=== PATIENT | female | born 2000 | race Asian ===

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

== ENCOUNTER 2019-05-07 18:54 | Inpatient (IN) | payer OTHER ==
--- NOTE | 2019-05-07 19:17 | ED ---
Psychiatric Complaint - HPI Summary HPI Summary: Pt is a 18 y/o F presenting to the ED brought in on a 9.41 by the [employer] [employer]. Per triage note, pt was talking to her boyfriend on the phone and expressed thoughts of wanting to jump off a bridge. Pt denies any symptoms, including pain or fever. She denies recent thoughts of suicide or recent self- harm. - History Of Current Complaint Chief Complaint: EDMentalHealth Time Seen by Provider: 05/07/19 19:05 Accompanied By: SHARRI Hx Obtained From: Patient Onset/Duration: Gradual Onset, Lasting Hours, Still Present Timing: Hours Severity Initially: Moderate Severity Currently: Mild Character: Depressed Aggravating Factor(s): Nothing Alleviating Factor(s): Nothing Associated Signs And Symptoms: Positive: Negative Has Suicidal: Reports: Thoughts, With A Plan - Allergies/Home Medications Allergies/Adverse Reactions: Allergies Allergy/AdvReac Type Severity Reaction Status Date / Time No Known Allergies Allergy Verified 04/09/18 02:24 PMH/Surg Hx/FS Hx/Imm Hx Previously Healthy: Yes Sensory History: Denies: Hx Legally Blind, Hx Deafness Opthamlomology History: Denies: Hx Legally Blind Psychiatric History: Reports: Hx Depression Denies: Hx Eating Disorder, Hx of Violent Episodes Against Others Infectious Disease History: No Infectious Disease History: Denies: Traveled Outside the [place] in Last 30 Days - Family History Known Family History: Positive: Other - Patient will not answer question - Social History Alcohol Use: Rare Hx Substance Use: No Substance Use Type: Reports: None Substance Use Comment - Amount & Last Used: pt denies Hx Tobacco Use: No Smoking Status (MU): Never Smoked Tobacco Review of Systems Negative: Fever Negative: Myalgia Positive: Depressed All Other Systems Reviewed And Are Negative: Yes Physical Exam - Summary Physical Exam Summary: Appearance: Well-appearing, Well-nourished, lying in bed comfortable Skin: Warm, dry, no obvious rash Eyes: sclera anicteric, no conjunctival pallor ENT: mucous membranes moist Neck: deferred Respiratory: No signs of respiratory distress Cardiovascular: Appears well perfused, pulses are nml Abdomen: deferred Musculoskeletal: Moving all 4 extremities without obvious discomfort Neurological: Awake and alert, mentation is normal, speech is fluent and appropriate Psychiatric: affect is normal, does not appear anxious or depressed Triage Information Reviewed: Yes Vital Signs On Initial Exam: Initial Vitals Temp Pulse Resp BP Pulse Ox 99.3 F 85 16 136/89 100 05/07/19 18:56 05/07/19 18:56 05/07/19 18:56 05/07/19 18:56 05/07/19 18:56 Vital Signs Reviewed: Yes Procedures - Sedation Patient Received Moderate/Deep Sedation with Procedure: No Diagnostics - Vital Signs Vital Signs Temp Pulse Resp BP Pulse Ox 05/07/19 18:56 99.3 F 85 16 136/89 100 - Laboratory Result Diagrams: 05/07/19 19:37 05/07/19 19:37 Lab Statement: Any lab studies that have been ordered have been reviewed, and results considered in the medical decision making process. Course/Dx - Course Course Of Treatment: Pt is a 18 y/o F presenting to the ED brought in on a 9.41 by the [place] [employer]. Pt denies any symptoms, including pain or fever. She denies recent thoughts of suicide or recent self-harm. Physical exam is nml. As per Dr. Avila, pt's dx is adjustment disorder and they will try to transfer her to another psych facility. - Differential Dx/Clinical Impression Provider Diagnosis: Adjustment disorder Discharge ED - Sign-Out/Discharge Documenting (check all that apply): Patient Departure - Discharge Plan Condition: Good Disposition: PSYCHIATRIC FACILITY-OTHER Referrals: [facility] [Outside] - Billing Disposition and Condition Condition: GOOD Disposition: Psychiatric Facility Other - Attestation Statements Document Initiated by Scribe: Yes Documenting Scribe: Gaby Ramos Provider For Whom Edwina is Documenting (Include Credential): Francisco Javier Schwarz MD. Scribe Attestation: Gaby Adam, scribed for Francisco Javier Schwarz MD. on 05/08/19 at 0315. Scribe Documentation Reviewed: Yes Provider Attestation: The documentation as recorded by the paxtonibGaby reza accurately reflects the service I personally performed and the decisions made by me, Francisco Javier Schwarz MD. Status of Scribe Document: Viewed
[2019-05-07 19:34] LABS: Urine Appearance Clear; Urine Bilirubin Negative (Negative); Urine Blood Negative (Negative); Urine Color Yellow; Urine Glucose Negative (Negative); Urine Ketones Negative (Negative); Urine Nitrite Negative (Negative); Urine Protein Negative (Negative); Urine Specific Gravity 1.011 (1.010-1.030); Urine Urobilinogen Negative (Negative)
[2019-05-07 19:42] LABS: Urine Bacteria Absent (Absent); Urine Red Blood Cell Absent (Absent); Urine Squamous Epithelial Cell Present (Absent); Urine White Blood Cell Trace(0-5/hpf) (Absent)
[2019-05-07 19:45] LABS: ABS Basophils 0.1 10^3/ul (0-0.2); ABS Eosinophils 0.1 10^3/ul (0-0.6); ABS Lymphocytes 1.4 10^3/ul (1.0-4.8); ABS Monocytes 0.3 10^3/ul (0-0.8); ABS Neutrophils 5.2 10^3/ul (1.5-7.7); Hematocrit 37 % (35-47); Hemoglobin 12.6 g/dL (12.0-16.0); Lymphocyte % 19.8 %; Mean Corpuscular HGB Conc 34 g/dL (31-36); Mean Corpuscular Hemoglobin 31 pg (27-31); Mean Corpuscular Volume 89 fL (80-97); Mean Platelet Volume 8.5 fL (7.4-10.4); Platelet Count 183 10^3/uL (150-450); Red Blood Count 4.12 10^6 /uL (3.70-4.87); Red Cell Distribution Width 13 % (10-15); White Blood Count 7.1 10^3/uL (3.5-10.8)
[2019-05-07 20:00] LABS: Urine Benzodiazepine Screen None Detected (None Detect); Urine Opiates Screen None Detected (None Detect)
[2019-05-07 20:02] LABS: ALT 20 U/L (7-52); AST 18 U/L (13-39); Albumin 4.7 g/dL (3.2-5.2); Albumin/Globulin Ratio 1.6 (1-3); Alkaline Phosphatase 39 U/L (34-104); Anion Gap 9 mmol/L (2-11); BUN/Creatinine Ratio 19.7 (8-20); Blood Urea Nitrogen 12 mg/dL (6-24); CO2 Carbon Dioxide 21 mmol/L (22-32); Calcium 10.1 mg/dL (8.6-10.3); Chloride 108 mmol/L (101-111); EGFR African American 152.9 (>60); EGFR Non-African American 126.4 (>60); Globulin 2.9 g/dL (2-4); Glucose 91 mg/dL (70-100); Potassium 3.5 mmol/L (3.5-5.0); Sodium 138 mmol/L (135-145); Total Protein 7.6 g/dL (6.4-8.9)
[2019-05-07 20:08] LABS: HCG Pregnancy < 0.60 mIU/mL
[2019-05-07 20:11] LABS: Acetaminophen < 15 mcg/mL; Alcohol < 10 mg/dL (<10); Salicylate < 2.50 mg/dL (<30)
[2019-05-07 20:24] LABS: TSH (Thyroid Stimulating Horm) 2.35 mcIU/mL (0.34-5.60)
--- NOTE | 2019-05-08 07:18 | ED ---
Progress - Progress Note Progress Note: The patient is a sign-out from Dr. Francisco Javier Schwarz MD, to Dr. Jw Patterson MD, at change of shift at 0700 on 05/08/19, pending transfer to [facility] for mental health treatment. 1020 Dr. Nunez, psychiatry, has evaluated the patient and has determined that the patient can be admitted to the [facility] psychiatry unit as there will be a bed available for the patient today, diagnosis of unspecified depression Course/Dx - Course Course Of Treatment: The patient is a sign-out from Dr. Francisco Javier Schwarz MD, to Dr. Jw Patterson MD, at change of shift at 0700 on 05/08/19, pending transfer to [facility] for mental health treatment. Dr. Nunez, psychiatry, has evaluated the patient and has determined that the patient can be admitted to the [facility] psychiatry unit as there will be a bed available for the patient today. Patient agrees with this plan. - Diagnoses Provider Diagnoses: Major depressive disorder, single episode, unspecified - Provider Notifications Discussed Care Of Patient With: Paulie Nunez - psychiatry Time Discussed With Above Provider: 10:20 Instructed by Provider To: Other - Dr. Nunez states that there will be a bed available for the patient, so the patient will not need to be transferred but will still be admitted to [facility], diagnosis of unspecified depression Discharge ED - Sign-Out/Discharge Documenting (check all that apply): Patient Departure - Patient accepted for admission by Dr. Nunez., Receiving Sign-Out Receiving patient FROM: Francisco Javier Schwarz - Patient is a sign-out from Dr. Francisco Javier Schwarz MD, at change of shift at 0700 on 05/08/19, pending mental health transfer. - Discharge Plan Condition: Stable Disposition: PSYCHIATRIC FACILITY-[facility] - Billing Disposition and Condition Condition: STABLE Disposition: Psychiatric Facility [facility] - Attestation Statements Document Initiated by Scribe: Yes Documenting Scribe: Cristina Cook Provider For Whom Edwina is Documenting (Include Credential): Dr. Jw Patterson MD Scribe Attestation: Cristina Adam scribed for Dr. Jw Patterson MD on 05/08/19 at 1900. Scribe Documentation Reviewed: Yes Provider Attestation: The documentation as recorded by the Cristina alves accurately reflects the service I personally performed and the decisions made by me, Dr. Jw Patterson MD Status of Scribe Document: Viewed Procedures - Sedation Patient Received Moderate/Deep Sedation with Procedure: No
[2019-05-08] MEDS ORDERED: Acetaminophen TAB* 325 MG PO PRN (11:00)
[2019-05-08] MEDS ORDERED: Al Hydrox/Mg Hydrox/Simet LIQ* 30 ML UDC PO PRN (11:00)
[2019-05-08] MEDS ORDERED: hydrOXYzine HCL TAB* 50 MG PO PRN (11:02)
[2019-05-08] MEDS ORDERED: YASMIN PO SCH (20:00)
[2019-05-09 08:21] LABS: HDL Cholesterol 61.2 mg/dL
[2019-05-09 10:36] VITALS: BP 114/54
--- NOTE | 2019-05-09 11:43 | PN ---
BSU: Group Therapy Note - Service Type Service Type: [id number] Group Psychotherapy - Cognitive Behavioral Group Therapy ( CBT):Patient was attentive and participatory in CBT programming this morning, and remained in good behavioral control. Patient expressed positive insights regarding relevant treatment interventions and goals.
--- NOTE | 2019-05-09 13:38 | HP ---
HISTORY & PHYSICAL/DISCHARGE SUMMARY DATE OF ADMISSION: 05/08/2019. SUPERVISING PSYCHIATRIST: Dr. Paulie Nunez * (dictated by FIDEL Connelly ). PRIMARY CARE PHYSICIAN: [facility]. JUSTIFICATION FOR ADMISSION: The patient presented to the emergency department via police after she expressed suicidal ideation and was near a bridge and had thoughts of jumping off of the bridge. The patient merits hospitalization for immediate safety and stabilization. CHIEF COMPLAINT: "I think I'm doing fine." HISTORY OF PRESENT ILLNESS: Jaimee is a 18-year-old female, first generation of parents who immigrated from [place]. 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 The patient reports thoughts of suicide recently and approximately a month ago and a year ago. She states that she is taking 23 credits this semester and having a hard time managing all of the course. She also reports that she is dating a young man who goes to college in [place] and that this long distance relationship is "complicated." According to the patient, she was calling her boyfriend and he was angry that she kept calling him after telling her that he was busy that day. She states that to her he simply did have time to take a phone call. This escalated to them arguing on the phone and with her being near a bridge, she had thoughts of jumping off of the bridge. While on the phone, the boyfriend notified a friend of [place] who called police and came to where she was. In conversation, the patient is dysphoric with flat affect and states that episodes like Wednesday and previous thoughts of suicide are "just part of life." She denies depressed mood. She denies incapacitating anxiety. She reports that she goes to sleep easily, although her sleep schedule is erratic due to her academic schedule. She denies change in appetite. She denies difficulty concentrating. She denies hopelessness or helplessness. The patient states that she was having more academic stress approximately a month ago and reached out to [facility], but there were no appointments available for two to three weeks. She states that she thought she would try to get through this semester and is looking forward to the break in between semesters and returning home to [place]. She denies previous suicide attempts. She reports that she superficially cut her wrist a month ago or so and also one year ago when she presented to the emergency department. She denies a history of eating disorder or OCD. She denies periods of maryann or hypomania. She denies auditory or visual hallucinations. There are no perceptual disturbances noted. PAST PSYCHIATRIC HISTORY: The patient went to an appointment at [facility] last year. She states that she felt it was too formal, did not like it, and did not continue. She does state that she would be willing to pursue counseling after today. The patient was seen in the ED in March 2018 with a similar presentation and was discharged from the emergency department. She denies a history of psychiatric medications. She denies trauma or abuse history. PAST MEDICAL HISTORY: Healthy. IMPORT COORDINATOR HISTORY: LMP . CURRENT MEDICATIONS: Oral contraceptive, one tab daily. ALLERGIES: No known allergies. FAMILY PSYCHIATRIC HISTORY: Patient denies knowledge of mental health or suicide history in the family. SUBSTANCE USE HISTORY: The patient denies substance use. She denies a history of legal or involvement. SOCIAL HISTORY: The patient is the only child of [place] immigrants. She was raised in [place], [place]. As stated above, she is a sophomore at [employer]. She is majoring in Biological Sciences with a minor in Business and a minor in Information Science. She is taking 23 credits. She is in service [employer] and also has two laboratory classes. Her parents are . Her father took a job in [employer] when she started college and the family continues to have a house in [place] and a home in [facility]. REVIEW OF SYSTEMS: Constitutional: Negative. No fever, chills, fatigue. ENT : Negative. Cardiovascular: Negative. Denies chest pain or palpitations. Respiratory: Negative. Denies shortness of breath or cough. Genitourinary: Negative. Musculoskeletal: Negative. Neurological: Negative. PHYSICAL EXAMINATION GENERAL: The patient is well-appearing and well-nourished and in no apparent distress. VITAL SIGNS: Height 5'3", weight 145 pounds. Temperature 99.4, pulse 75, respiratory rate 16, O2 saturation 100 percent, blood pressure 114/54. HEENT: Head and face: Normal head and face inspection. Eyes: Positive EOMI. PERRLA. Conjunctivae clear. NECK: Supple. Full ROM. Trachea midline. RESPIRATORY: Lung sounds clear to auscultation. Breath sounds present. CARDIOVASCULAR: Heart RRR. Pulses are symmetrical in both upper and lower extremities. MUSCULOSKELETAL: Normal strength. ROM intact. NEUROLOGIC: Normal sensory motor intact. Alert and oriented times three with normal gait. Cerebellar function intact. SKIN: Warm, dry. Color reflects adequate perfusion. LABORATORY DATA: CBC within normal limits. Chemistry within normal limits. TSH normal at 2.35. HCG negative. Hemoglobin A1c and lipid panel within normal limits. Urinalysis: Generally unremarkable. Toxicology negative for salicylates, acetaminophen, or alcohol. Urine drug screen was negative. MENTAL STATUS EXAM: The patient is a 18-year-old, female who appears stated age. She is adequately groomed and casually dressed in her own clothing. 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 She has shoulder length black hair with the ends bright pink. She is alert and oriented times three. Eye contact is good. Speech is soft, articulate and spontaneous. Concentration good. Memory 3/3. Mood is dysphoric with restricted affect. No abnormal psychomotor activity noted. Thought process is circumstantial. Thought content is negative for suicidal ideation or passive wish at the time of interview. She denies auditory or visual hallucinations. There are no perceptual disturbances noted. Insight and judgment are fair in that she was willing to be hospitalized voluntarily for safety. She has at least an average intellect and her fund of knowledge is adequate. DIAGNOSES: Unspecified depressive disorder, rule out major depressive disorder , rule out adjustment disorder with disturbance of mood and conduct. ASSESSMENT: Jaimee is a 18-year-old, female, first generation of immigrant parents from [place] and a [employer] student in her sophomore year who presented to the emergency department after [employer] were notified due to suicidal ideation and a near attempt. She was seen in the emergency department and deemed appropriate for admission to the B[facility]. PLAN: Patient is admitted to the Adult Behavioral Services Unit on voluntary status. Code status is full. She is on safety checks every 15 minutes. She is already participating in supportive milieu, individual sessions with staff, and psychoeducational groups. She has declined offer of antidepressant medication at this time. Her mother just arrived to the unit and we will collaborate with her and [facility]. Estimated length of stay is two to three days. Discharge planning will include the patient's mother and outpatient providers, along with referral to [facility]. CONDITION AT TIME OF DISCHARGE: Improved. Patient denies SI or passive wish. She requests to be discharged as soon as possible to return to academic schedule. Her mother is present from [place] and noted to be supportive with positive interactions toward Jaimee. Patient and mother agreeable to discharge plan. Patient is discharged to HOME. ANTOINETTE PAN, MEKHI [id number]/CPS #: [id number] BRANDAN
== END 2019-05-09 13:00 | disposition home or self-care (01) | DRG 881 ==
LOC: ED 18:54 → BSU 05-08 13:50
PROVIDERS: ADMIT Psychiatry & Neurology Psychiatry; ATTEND Psychiatry & Neurology Psychiatry
DX: F32.9 Major depressive disorder, single episode, unspecified (principal); R45.851 Suicidal ideations; F43.25 Adjustment disorder with mixed disturbance of emotions and conduct; Z79.3 Long term (current) use of hormonal contraceptives
CPT/HCPCS: 36415; 80053; 80061; 80307; 80320; 80329; 81003; 81015; 83036; 84443; 84702; 85025; 87086; 90853; 99238; 99284; G0480

== ENCOUNTER 2019-07-28 13:14 | Emergency (ER) | payer OTHER ==
--- NOTE | 2019-07-28 14:04 | ED ---
Head Injury - HPI Summary HPI Summary: This pt is a 18 Y/O F presenting to [facility] with a CC of falling down 5-6 stairs. She states that she has pain that is rated a 3/10 in severity. She states that she has multiple abrasions and ecchymosis over her body. She states that most of her pain is localized to where she has a large bruise with an abrasion on her R forehead. She denies any neck pain, SOB, CP, headaches, LOC, dizziness, blurred vision, and back pain. She has no aggravating or alleviating factors. She has no pertinent PMHx. Her LKMP was 2 weeks ago. - History Of Current Complaint Chief Complaint: EDHeadInjury Stated Complaint: FALL 10 STAIRS Time Seen by Provider: 07/28/19 13:46 Hx Obtained From: Patient Hx Last Menstrual Period: 2 weeks ago Mechanism Of Injury: Blunt Trauma, Fall From Height Of: - states fell down 5-6 stairs Onset/Duration: Started Hours Ago Onset of Pain: Immediate Severity Currently: Mild Severity Initially: Mild Pain Intensity: 3 Pain Scale Used: 0-10 Numeric Location of Head Injury: Frontal Aggravating Factor(s): Other: - nothing Alleviating Factor(s): Other: - nothing Associated Signs And Symptoms: Negative - neck pain, SOB, CP, headaches, LOC, dizziness, blurred vision, and back pain., Swelling, Bruising - Allergies/Home Medications Allergies/Adverse Reactions: Allergies Allergy/AdvReac Type Severity Reaction Status Date / Time No Known Allergies Allergy Verified 07/28/19 13:21 PMH/Surg Hx/FS Hx/Imm Hx Previously Healthy: Yes Endocrine/Hematology History: Denies: Hx Diabetes Cardiovascular History: Denies: Hx Congestive Heart Failure Sensory History: Reports: Hx Contacts or Glasses - Pt states she does not have contacts with her. Denies: Hx Legally Blind, Hx Deafness, Hx Hearing Aid Opthamlomology History: Reports: Hx Contacts or Glasses - Pt states she does not have contacts with her. Denies: Hx Legally Blind Psychiatric History: Reports: Hx Depression, Other Psychiatric Issues/Disorders - Hx SIB on L wrist, superficial cutting Denies: Hx Eating Disorder, Hx Post Traumatic Stress Disorder, Hx Schizophrenia, Hx Bipolar Disorder, Hx of Violent Episodes Against Others Comment Only: Hx Suicide Attempt - Pt states she thought about it in high school - Cancer History Hx Chemotherapy: No Hx Radiation Therapy: No - Surgical History Surgical History: None - Immunization History Immunizations Up to Date: Yes Infectious Disease History: No Infectious Disease History: Denies: Traveled Outside the [place] in Last 30 Days - Family History Known Family History: Negative: Hypertension, Diabetes - Social History Occupation: Student - [employer] Lives: Dormitory/Roommates Alcohol Use: None Hx Substance Use: No Substance Use Type: Reports: None Substance Use Comment - Amount & Last Used: pt denies Hx Tobacco Use: No Smoking Status (MU): Never Smoked Tobacco Review of Systems Constitutional: Negative - dizziness Negative: Blurred Vision ENT: Negative - Neck pain Negative: Chest Pain Negative: Shortness Of Breath Musculoskeletal: Negative - back pain Skin: Other - ecchymosis to R forehead Positive: Bruising Neurological/Mental Status: Negative - LOC Negative: Headache All Other Systems Reviewed And Are Negative: Yes Physical Exam - Summary Physical Exam Summary: VITAL SIGNS: Reviewed. GENERAL: Patient is a well-developed and nourished Female who is lying comfortable in the stretcher. Patient is not in any acute respiratory distress. HEAD AND FACE: Swelling on the R side of the forehead. No skull depressions. No sinus tenderness. EYES: PERRLA, EOMI x 2, No injected conjunctiva, no nystagmus. EARS: Hearing grossly intact. Ear canals and tympanic membranes are within normal limits. MOUTH: Oropharynx within normal limits. NECK: Supple, trachea is midline, no adenopathy, no JVD, no carotid bruit, no c- spine tenderness, neck with full ROM. CHEST: Symmetric, no tenderness at palpation. LUNGS: Clear to auscultation bilaterally. No wheezing or crackles. CVS: Regular rate and rhythm, S1 and S2 present, no murmurs or gallops appreciated. ABDOMEN: Soft, non-tender. No signs of distention. No rebound, no guarding, and no masses palpated. Bowel sounds are normal. EXTREMITIES: FROM in all major joints, no edema, no cyanosis or clubbing. NEURO: Alert and oriented x 3. No acute neurological deficits. Speech is normal and follows commands. SKIN: Dry and warm. Triage Information Reviewed: Yes Vital Signs On Initial Exam: Initial Vitals Temp Pulse Resp BP Pulse Ox 98.8 F 83 15 134/72 98 07/28/19 13:15 07/28/19 13:15 07/28/19 13:15 07/28/19 13:15 07/28/19 13:15 Vital Signs Reviewed: Yes Procedures - Sedation Patient Received Moderate/Deep Sedation with Procedure: No Diagnostics - Vital Signs Vital Signs Temp Pulse Resp BP Pulse Ox 07/28/19 13:15 98.8 F 83 15 134/72 98 - Laboratory Lab Statement: Any lab studies that have been ordered have been reviewed, and results considered in the medical decision making process. Re-Evaluation - Re-Evaluation First Eval Re-Evaluation Time: 14:08 Change: Unchanged Comment: Pt denied a CT scan and uis agreeable with having a friend watch her for the next 6 hours. She states that she has no real complaint and is agreeable with discharge. Head Injury Course/Dx Assessment/Plan: This pt is a 18 Y/O F presenting to [facility] with a CC of falling down 5-6 stairs. She states that she has pain that is rated a 3/10 in severity. She states that she has multiple abrasions and ecchymosis over her body. She states that most of her pain is localized to where she has a large bruise with an abrasion on her R forehead. She denies any neck pain, SOB, CP, headaches, LOC , dizziness, blurred vision, and back pain. She has no aggravating or alleviating factors. She has no pertinent PMHx. Her LKMP was 2 weeks ago. Patient is alert and oriented 3. The patient is neurological intact. The patient does have any neck pain or headache. The patient has pain along the swelling in the right side of the forehead. The patient declined the CT of the head. Patient reports that she will have someone with her for the next 12 hours and if there is any change with nausea and vomiting, headache, altered mental status the patient will return to the ED for further workup and management. At this point, I discussed all the findings and test results with the patient. Patient was instructed to return to the emergency room immediately if any of the symptoms return or worsen.Plan of care was discussed with the patient and the patient understands and agrees. All questions were answered at patient satisfaction. Patient understands and agrees. Neurological exam before discharge: Patient is alert and oriented x 3. No acute neurological deficits. Patient's vital signs are stable. Patient is to follow up with CPP in the next 2 3 days. They understand and agree. The plan of care was discussed with the patient and the patient understands and agrees with the plan of care. All questions were answered at patient satisfaction. There were no further complaints or concerns. - Diagnoses Provider Diagnoses: Head contusion Discharge ED - Sign-Out/Discharge Documenting (check all that apply): Patient Departure - discharge - Discharge Plan Condition: Good Disposition: HOME Patient Education Materials: Head Injury (ED) Forms: *School Release Referrals: [facility] - Pasquale LAWRENCE [Primary Care Provider] - 2 Days Additional Instructions: PLEASE FOLLOW UP WITH [facility] IN 1-3 DAYS AND RETURN TO THE EMERGENCY DEPARTMENT FOR ANY NEW OR WORSENING SYMPTOMS. Since you have declined a CT scan at this time please have a friend come pick you up and watch after you for the next 12 hours. If you begin to experience any differences in your actions or thoughts please return to the emergency department immediately. - Billing Disposition and Condition Condition: GOOD Disposition: Home - Attestation Statements Document Initiated by Edwina: Yes Documenting Danielibe: Alexander Bowers Provider For Whom Edwina is Documenting (Include Credential): Jw Patterson MD Scribe Attestation: Alexander Adam scribed for Jw Patterson MD on 07/28/19 at 1828. Scribe Documentation Reviewed: Yes Provider Attestation: The documentation as recorded by the Alexander alves accurately reflects the service I personally performed and the decisions made by me, Jw Patterson MD Status of Scribe Document: Viewed
[2019-07-28 14:37] VITALS: BP 137/67
== END 2019-07-28 14:35 | disposition home or self-care (01) ==
LOC: ED 13:14
DX: S00.83XA Contusion of other part of head, initial encounter (principal); W10.9XXA Fall (on) (from) unspecified stairs and steps, initial encounter; Y92.9 Unspecified place or not applicable
CPT/HCPCS: 99282